=== PATIENT | female | born 1985 | race Caucasian/White ===

== ENCOUNTER → 2017-11-07 | Day surgery (SDC) | payer OTHER ==
[2017-11-04 11:17] LABS: BASOPHILS # (AUTO) 0.1 (0.0-0.1); BASOPHILS % 0.8 % (0.0-1.0); EOSINOPHILS # (AUTO) 0.1 (0.0-0.4); EOSINOPHILS % 1.4 % (0.0-6.0); HEMATOCRIT 40.5 % (34.2-44.1); HEMOGLOBIN 13.3 g/dL (12.0-16.0); LYMPHOCYTES # (AUTO) 1.9 (1.0-3.2); LYMPHOCYTES % 29.6 % (18.0-39.1); MEAN CORPUSCULAR HEMOGLOBIN 31.5 pg (28-32); MEAN CORPUSCULAR HGB CONC 32.8 g/dL (31-35); MONOCYTES # (AUTO) 0.4 (0.2-0.8); MONOCYTES % 5.9 % (4.4-11.3); NEUTROPHILS % 62.1 % (38.7-80.0); PLATELET COUNT 180 x10e3/uL (140-360); RED BLOOD COUNT 4.22 x10e6/uL (3.6-5.1)
[~2017-11-07] MED LIST: BUPIVACAINE 0.25% 30ML SDV INJ ONE; DEXAMETHASONE SOD PHOS INJ 4 MG/ML VIAL ONE; EPHEDRINE SULFATE INJ 50 MG/10 ML SYR ONE; FENTANYL CITRATE/PF 100MCG/2 ML INJ ONE; KETOROLAC TROMETHAMINE 30 MG/ML VIAL ONE; LIDOCAINE HCL 2% LOCAL INJ 5 ML SDV VIAL INJ ONE; MIDAZOLAM HCL 2 MG/2 ML VIAL ONE; ONDANSETRON HCL INJ 2 MG/ML VIAL ONE; PROPOFOL IV EMULSION 10 MG/ML 20 ML VIAL ONE; SEVOFLURANE INHAL SOLN 250 ML PEN BTL ONE; TRINESSA1 EACH
--- NOTE | 2017-11-07 17:00 | Operative Report ---
DATE OF PROCEDURE: November 07, 2017 PREOPERATIVE DIAGNOSIS: Ventral hernia. POSTOPERATIVE DIAGNOSIS: Ventral hernia. OPERATION PERFORMED: Repair of ventral hernia with mesh. ANESTHESIA: General. COMPLICATIONS: None. ESTIMATED BLOOD LOSS: Minimal. DESCRIPTION OF PROCEDURE: With the patient lying in bed in the supine position, under good general anesthesia, the abdomen was prepped with Betadine solution and draped in the usual manner. A semilunar subumbilical incision was made. It was carried down through the subcutaneous tissue down to the fascia. The hernia was then identified and slowly and carefully encircled. The umbilicus was detached from the midline. Examination at this point revealed the presence of a defect that was to the left of the umbilicus with some incarcerated omentum. This was and reduced back to the intra-abdominal cavity. The hernia sac was then explored, and there were no other adhesions in the intra-abdominal cavity. A medium-sized V-patch was then placed through the hernia defect intra-abdominally and deployed without any problems. The mesh was then tacked in the corners using interrupted sutures of #0 Ethibond. Then the defect was closed at the midline in a transverse fashion using interrupted sutures of #0 Ethibond, anchoring the mesh on the way out. This gave us a satisfactory closure without any tension. The whole area was then thoroughly irrigated. Perfect hemostasis was ascertained. Fascia was infiltrated with 1/4 percent Marcaine. The umbilicus was then tacked back down to the midline with 3-0 Vicryl. The subcutaneous tissue was approximated with 3-0 Vicryl, and the skin was closed with subcuticular 5-0 Vicryl. Benzoin, Steri-Strips and dressings were applied. The sponge, lap and needle count was correct. The patient tolerated the procedure well and returned to the recovery room in stable condition. Job#: [id number]
== END | disposition home or self-care (01) ==
LOC: OR 12:39
PROVIDERS: ATTEND Surgery
DX: K43.6 Other and unspecified ventral hernia with obstruction, without gangrene (principal); Z01.812 Encounter for preprocedural laboratory examination
CPT/HCPCS: 36415 ×2; 49561; 49568; 84702; 85025; J1100; J1885; J2001; J2250; J2405

== ENCOUNTER → 2018-08-14 | Outpatient (CLI) | payer OTHER ==
[~2018-08-14] MED LIST changes: -BUPIVACAINE 0.25% 30ML SDV INJ ONE; -DEXAMETHASONE SOD PHOS INJ 4 MG/ML VIAL ONE; -EPHEDRINE SULFATE INJ 50 MG/10 ML SYR ONE; -FENTANYL CITRATE/PF 100MCG/2 ML INJ ONE; -KETOROLAC TROMETHAMINE 30 MG/ML VIAL ONE; -LIDOCAINE HCL 2% LOCAL INJ 5 ML SDV VIAL INJ ONE; -MIDAZOLAM HCL 2 MG/2 ML VIAL ONE; -ONDANSETRON HCL INJ 2 MG/ML VIAL ONE; -PROPOFOL IV EMULSION 10 MG/ML 20 ML VIAL ONE; -SEVOFLURANE INHAL SOLN 250 ML PEN BTL ONE
--- NOTE | 2018-08-14 16:47 | Diagnostic Imaging Report ---
PROCEDURE: US THYROID COMPARISON: 08/02/2013 thyroid ultrasound INDICATIONS:THYROID NODULES TECHNIQUE: Transverse and longitudinal oconnell-scale sonographic images of the thyroid were obtained and supplemented with color Doppler. FINDINGS: Right thyroid lobe: 5.4 x 1.6 x 2.1 cm. Hypoechoic nodule inferior aspect of the right lobe measures 5 x 5 x 6 mm. Left thyroid lobe: 5.3 x 1.8 x 2.4 cm. Mixed cystic and solid nodule has increased in size now measuring 3.0 x 2.0 x 2.6 cm. This nodule is irregular, lobulated, hypoechoic and has microcalcifications. Several additional less than 1 cm in size hypoechoic nodules are seen on the left side. Isthmus: Measures 0.3 cm CONCLUSION: Dominant nodule on the left lower pole has previously been biopsied. Consider rebiopsy due to the increase in size and the micro-calcifications. Reed Courtney D.O. Dictated by: Reed Courtney D.O. on 08/14/2018 at 16:57 Electronically approved by: Reed Courtney D.O. on 08/14/2018 at 16:57
== END ==
LOC: US 15:51
PROVIDERS: ATTEND Family Medicine
DX: E04.1 Nontoxic single thyroid nodule (principal)
CPT/HCPCS: 76536